=== PATIENT | female | born 1960 | race Caucasian/White ===

== ENCOUNTER 2016-11-11 07:37 | Emergency (ER) | payer BC ==
[2016-11-11] MEDS ORDERED: Sodium Chloride 0.9% 10 ML Syringe FLUSH PRN (07:43)
[2016-11-11] MEDS ORDERED: Sodium Chloride 0.9% 1,000 ML IV SCH (07:45)
--- NOTE | 2016-11-11 08:39 | EDM.PDOC ---
ED HPI GENERAL MEDICAL PROBLEM - General Chief Complaint: Cardiovascular Problem Stated Complaint: AMBER CLEMONS FROM RAD Time Seen by Provider: 11/11/16 07:43 Source of Information: Reports: Patient, Provider, RN Notes Reviewed - History of Present Illness INITIAL COMMENTS - FREE TEXT/NARRATIVE: 56-year-old female was over at the nuclear medicine department getting lexiscan portion of her cardiac stress test when she suffered a brief episode of syncope. director hair showed some major pauses over a period of about 30 seconds. AMBER CLEMONS was called. Upon my arrival heart patient was awake, had a good radial pulse and not in acute distress. She was sent over to the ED for further evaluation and monitoring. On arrival to ED she continues to have no chest discomfort. She remembers being told that she would probably feel lightheaded and dizzy and then remembers waking up with a lot of people in the room. At this time she continues to not have chest discomfort or shortness of breath. The dizziness has fairly well resolved. She states she does have history of abnormal EKG, a valve problem and enlargement of her heart and is currently under the care of a Software Development Analyst in [place]. She does have long- standing history of hypertension. She states she has been feeling fine recently although her chest will get "tight" with exertion such as mowing the lawn. She did take her normal meds this morning except she did not take her Coreg. Headache Pain Score (Numeric/FACES): 8 - Related Data Allergies Allergy/AdvReac Type Severity Reaction Status Date / Time prednisone Allergy Anaphylactic Verified 11/11/16 07:55 Shock Home Meds: Home Meds Carvedilol 12.5 mg PO BID 11/11/16 [History] Chlorthalidone 25 mg PO DAILY 11/11/16 [History] Ibuprofen [Advil Migraine] 200 mg PO Q4H PRN 11/11/16 [History] Lisinopril 20 mg PO DAILY 11/11/16 [History] Pravastatin [Pravachol] 20 mg PO BEDTIME 11/11/16 [History] Past Medical History Cardiovascular History: Reports: High Cholesterol, Hypertension - Past Surgical History Cardiovascular Surgical History: Reports: None Female Surgical History: Reports: Section Musculoskeletal Surgical History: Reports: Other (See Below) Other Musculoskeletal Surgeries/Procedures:: ACL repair to left knee Social & Family History - Tobacco Use Smoking Status *Q: Current Every Day Smoker Years of Tobacco use: 45 Packs/Tins Daily: 0.5 - Caffeine Use Caffeine Use: Reports: Coffee - Recreational Drug Use Recreational Drug Use: No ED ROS GENERAL - Review of Systems Review Of Systems: See Below Constitutional: Denies: Fever, Chills HEENT: Denies: Throat Pain, Throat Swelling Respiratory: Reports: Shortness of Breath (Exertional), Cough (Occasional) Cardiovascular: Reports: Dyspnea on Exertion, Lightheadedness (Patient did feel lightheaded before passing out and upon awakening, that has now resolved). Denies: Chest Pain (Patient has no chest discomfort at this time), Edema GI/Abdominal: Denies: Abdominal Pain, Nausea, Vomiting Musculoskeletal: Denies: Leg Pain Skin: Reports: No Symptoms Neurological: Reports: Dizziness (Resolving). Denies: Numbness, Tingling, Trouble Speaking ED EXAM, GENERAL - Physical Exam Exam: See Below General Appearance: Alert, No Apparent Distress Eye Exam: Bilateral Eye: PERRL Throat/Mouth: Normal Inspection, Normal Oropharynx Head: Atraumatic. No: Facial Swelling Neck: Supple, Full Range of Motion, Other (No JVD) Respiratory/Chest: No Respiratory Distress, Lungs Clear, Normal Breath Sounds Cardiovascular: Regular Rate, Rhythm GI/Abdominal: Soft, Non-Tender. No: Guarding Extremities: No: Pedal Edema, Leg Pain, Increased Warmth, Redness Neurological: Alert, Oriented, No Motor/Sensory Deficits Skin Exam: Warm, Dry, Normal Color EKG INTERPRETATION EKG Date: 11/11/16 Rhythm: NSR [place]: normal P-wave: present QRS: other (Q waves inferior anterior leads) ST-T: depressed (there is T-wave inversion aVL and V6) Course - Vital Signs Last Recorded V/S: Last Vital Signs Temp 97.9 F 11/11/16 07:41 Pulse 61 11/11/16 09:10 Resp 16 11/11/16 09:10 BP 164/92 H 11/11/16 07:41 Pulse Ox 95 11/11/16 09:10 - Orders/Labs/Meds Orders: Active Orders 24 hr Category Date Time Status EKG 12 Lead [EKG Documentation Completion] [RC] STAT Care 11/11/16 07:43 Active Peripheral IV Care [RC] . DIRECTED Care 11/11/16 07:43 Active Sodium Chloride 0.9% [Normal Saline] 1,000 ml Med 11/11/16 07:45 Active IV ASDIRECTED Sodium Chloride 0.9% [Saline Flush] Med 11/11/16 07:43 Active 10 ml FLUSH ASDIRECTED PRN Peripheral IV Insertion Adult [OM.PC] Stat Oth 11/11/16 07:43 Ordered Medication Orders Sodium Chloride (Normal Saline) 1,000 mls @ 75 mls/hr IV ASDIRECTED GAB Last Admin: 11/11/16 08:00 Dose: 75 mls/hr Sodium Chloride (Saline Flush) 10 ml FLUSH ASDIRECTED PRN PRN Reason: Keep Vein Open Last Admin: 11/11/16 08:00 Dose: 10 ml Labs: Laboratory Tests 11/11/16 11/11/16 11/11/16 Range/Units 07:48 07:48 10:43 WBC 10.08 H (3.98-10.04) K/mm3 RBC 5.66 H (3.98-5.22) M/mm3 Hgb 16.3 H (11.2-15.7) gm/L Hct 49.2 H (34.1-44.9) % MCV 86.9 (79.4-94.8) fl MCH 28.8 (25.6-32.2) pg MCHC 33.1 (32.2-35.5) g/dl RDW Std Deviation 44.0 (36.4-46.3) fL Plt Count 347 (182-369) K/mm3 MPV 10.7 (9.4-12.3) fl Neut % (Auto) 60.7 (34.0-71.1) % Lymph % (Auto) 26.0 (19.3-51.7) % [place] % (Auto) 11.1 (4.7-12.5) % Eos % (Auto) 1.5 (0.7-5.8) Baso % (Auto) 0.6 (0.1-1.2) % Neut # (Auto) 6.12 (1.56-6.13) K/mm3 Lymph # (Auto) 2.62 (1.18-3.74) K/mm3 [place] # (Auto) 1.12 H (0.24-0.36) K/mm3 Eos # (Auto) 0.15 (0.04-0.36) K/mm3 Baso # (Auto) 0.06 (0.01-0.08) K/mm3 Sodium 141 (136-145) mEq/L Potassium 3.7 (3.5-5.1) mEq/L Chloride 105 (98-107) mEq/L Carbon Dioxide 26 (21-32) mEq/L Anion Gap 13.7 (5-15) BUN 13 (7-18) mg/dL Creatinine 0.9 (0.55-1.02) mg/dL Est Cr Clr Drug Dosing TNP Estimated GFR (MDRD) > 60 (>60) mL/min BUN/Creatinine Ratio 14.4 (14-18) Glucose 116 H (74-106) mg/dL Calcium 9.3 (8.5-10.1) mg/dL Total Bilirubin 1.0 (0.2-1.0) mg/dL AST 12 L (15-37) U/L ALT 18 (14-59) U/L Alkaline Phosphatase 123 H (46-116) U/L Troponin I < 0.017 < 0.017 (0.00-0.056) ng/mL Total Protein 7.1 (6.4-8.2) g/dl Albumin 3.6 (3.4-5.0) g/dl Globulin 3.5 gm/dL Albumin/Globulin Ratio 1.0 (1-2) Meds: Medications Generic Name Dose Route Start Last Admin Trade Name Freq PRN Reason Stop Dose Admin Sodium Chloride 1,000 mls @ 75 mls/hr 11/11/16 07:45 11/11/16 08:00 Normal Saline IV 75 mls/hr ASDIRECTED GAB Administration Sodium Chloride 10 ml 11/11/16 07:43 11/11/16 08:00 Saline Flush FLUSH 10 ml ASDIRECTED PRN Administration Keep Vein Open - Re-Assessments/Exams Free Text/Narrative Re-Assessment/Exam: 11/11/16 08:25. Patient continues to rest comfortably here in the ED. Sinus rhythm with no ectopy. She does have abnormal EKG with history of that. Labs pending. With her rhythm is stable and no current symptomatology I will let her continue through the process of further imaging to complete her cardiac stress test this morning. 11/11/16 10:57 Dr Mueller called a few minutes ago, connected me with her Software Development Analyst from [place]. I informed him of her current condition, labs, normal trop. He agrees with doing a repeat 2 to 3 hr trop. He states he will be contacting her to set her up for angiogram in the near future. 11/11/16 11:45. Repeat troponin is normal. Her vitals remained stable. Her cardiac stress test is complete. She's had no chest pain or unusual dizziness since her arrival to our ED several hours ago. Discharge instructions as documented Departure - Departure Time of Disposition: 11:46 Disposition: Home, Self-Care 01 Condition: fair Clinical Impression: Bradycardia Syncope Qualifiers: Syncope type: unspecified Qualified Code(s): R55 - Syncope and collapse Instructions: Bradycardia, Syncope, [id number] Referrals: Viki Hampton, [facility]ER [Primary Care Provider] - Forms: ED Department Discharge Additional Instructions: Continue current medications as previously prescribed, her mangle catcher will be contacting you regarding further diagnostics as well as results of your cardiac stress study today, return to ED for chest pain, unusual dizziness or symptoms otherwise worsening in any way, followup clinic as needed. - My Orders Last 24 Hours: My Active Orders 11/11/16 07:43 EKG 12 Lead [EKG Documentation Completion] [RC] STAT Peripheral IV Care [RC] . DIRECTED Sodium Chloride 0.9% [Saline Flush] 10 ml FLUSH ASDIRECTED PRN Peripheral IV Insertion Adult [OM.PC] Stat 11/11/16 07:45 Sodium Chloride 0.9% [Normal Saline] 1,000 ml IV ASDIRECTED - Assessment/Plan Last 24 Hours: My Active Orders 11/11/16 07:43 EKG 12 Lead [EKG Documentation Completion] [RC] STAT Peripheral IV Care [RC] . DIRECTED Sodium Chloride 0.9% [Saline Flush] 10 ml FLUSH ASDIRECTED PRN Peripheral IV Insertion Adult [OM.PC] Stat 11/11/16 07:45 Sodium Chloride 0.9% [Normal Saline] 1,000 ml IV ASDIRECTED
[2016-11-11 11:57] VITALS: BP 160/83
== END 2016-11-11 11:55 | disposition home or self-care (01) ==
LOC: JD.ED 07:37
DX: R55 Syncope and collapse (principal); R00.1 Bradycardia, unspecified; I10 Essential (primary) hypertension; E78.00 Pure hypercholesterolemia, unspecified; Z98.890 Other specified postprocedural states; Z79.899 Other long term (current) drug therapy; F17.210 Nicotine dependence, cigarettes, uncomplicated; Z88.8 Allergy status to other drugs, medicaments and biological substances
CPT/HCPCS: 36415; 80053; 84484; 85025; 93005; 96360; 99285; J7040; J7050; 99284

== ENCOUNTER 2018-07-26 10:15 | Emergency (ER) | payer BC ==
--- NOTE | 2018-07-26 11:57 | CR ---
Chest: Two views of the chest were obtained. Comparison: Prior chest x-ray of 07/04/14. Heart size is normal. Tortuous thoracic aorta is seen. Lung markings are mildly increased which are believed to be chronic. No acute parenchymal change is seen. Bony structures appear within normal limits for the patient's age. Impression: 1. Nothing acute is seen on two-view chest x-ray. Diagnostic code #2
--- NOTE | 2018-07-26 12:10 | EDM.PDOC ---
ED HPI GENERAL MEDICAL PROBLEM - General Chief Complaint: Cardiovascular Problem Stated Complaint: CHEST PAIN Time Seen by Provider: 07/26/18 10:39 Source of Information: Reports: Patient, RN Notes Reviewed History Limitations: Reports: No Limitations - History of Present Illness INITIAL COMMENTS - FREE TEXT/NARRATIVE: The patient states that she saw her Engineer Second Assistant, Dr. Currie, today, for a routine visit, but that he then sent her here because the patient reported that she had had chest pain this morning, and her blood pressure was noted to be significantly elevated in his office. The patient describes that she developed left anterior chest pain around 05:30. She states that she was already up. She describes the pain as being a squeezing sensation. It was a pain, not a discomfort. It did not radiate. It came on rapidly. It lasted for only about 15 minutes, then resolved, and has not returned. The patient is not sure if she had associated dyspnea. She had no associated nausea, diaphoresis, or sense of impending doom. The patient states that after the pain resolved, she experienced some heartburn symptoms. The patient has a history of a hiatal hernia with acid reflux The patient states that she has had similar episodes of left-sided chest pain, several times over the past year. Of note, the patient states that she underwent a coronary angiogram in both 2017 and 2018, and that both were "clean ". The patient was given an extra dose of hydralazine in Dr. Currie's office before being sent to the ED. Here in the ED, the patient's initial BP was initially 214/85, but came down to 187/78, without additional treatment. An ECG, obtained 02/16/2018, was faxed to us from Dr. Currie's office. It demonstrates a normal sinus rhythm at 62 bpm. There is no AV block. There is likely LAE. There are no ischemic changes, although Q waves are noted in the inferior and lateral leads. There is no LAD. There is likely LVH. No intraventricular conduction delays. The QTc is within normal limits. The patient's PCP is Adrianne Natarajan. Treatments FLIGHT SECURITY SPECIALIST: Reports: Other (see below) Other Treatments FLIGHT SECURITY SPECIALIST: hydralazine headache Pain Score (Numeric/FACES): 4 - Related Data Allergies Allergy/AdvReac Type Severity Reaction Status Date / Time carvedilol [From Coreg] Allergy Other Verified 07/26/18 10:28 prednisone Allergy Anaphylactic Verified 07/26/18 10:27 Shock regadenoson [From Lexiscan] Allergy Cardiac Verified 07/26/18 10:27 Arrest capsicum/lopes pepper Allergy Bronchospas Uncoded 07/26/18 10:28 ms Home Meds: Home Meds Ibuprofen [Advil Migraine] 200 mg PO Q4H PRN 11/11/16 [History] Lisinopril 20 mg PO DAILY 11/11/16 [History] Pravastatin [Pravachol] 40 mg PO BEDTIME 11/11/16 [History] Aspirin 325 mg PO DAILY 07/26/18 [History] Montelukast [Singulair] 10 mg PO DAILY 07/26/18 [History] Nitroglycerin [Nitrostat] 0.4 mg SL ASDIRECTED PRN 07/26/18 [History] Omeprazole 20 mg PO BID 07/26/18 [History] Spironolactone [Aldactone] 25 mg PO BID 07/26/18 [History] amLODIPine Besylate [Amlodipine Besylate] 5 mg PO BID 07/26/18 [History] cloNIDine [Catapres] 0.1 mg PO BID 07/26/18 [History] hydrALAZINE [Apresoline] 50 mg PO Q3H PRN 07/26/18 [History] Past Medical History HEENT History: Reports: Hard of Hearing Cardiovascular History: Reports: High Cholesterol, Hypertension Gastrointestinal History: Reports: GERD, Hiatal Hernia Genitourinary History: Reports: Urinary Incontinence (stress incontinence) - Past Surgical History HEENT Surgical History: Reports: Oral Surgery (wisdom teeth extraction) Cardiovascular Surgical History: Reports: Other (See Below) (Coronary angiogram 2017, 2018, both "clean") GI Surgical History: Reports: Colonoscopy, EGD Female Surgical History: Reports: Section (x 1) Musculoskeletal Surgical History: Reports: Other (See Below) (Left knee open ACL repair) Social & Family History - Tobacco Use Smoking Status *Q: Current Every Day Smoker Years of Tobacco use: 44 Packs/Tins Daily: 0.5 Packs/Tins Daily Comment: Down from 1 ppd - Caffeine Use Caffeine Use: Reports: Coffee - Alcohol Use Alcohol Use History: No - Recreational Drug Use Recreational Drug Use: No - Living Situation & Occupation Living situation: Reports: , with Spouse, with Family (3 sons) Occupation: Employed (health care administrator) ED ROS GENERAL - Review of Systems Review Of Systems: ROS reveals no pertinent complaints other than HPI. ED EXAM, GENERAL - Physical Exam Exam: See Below Exam Limited By: No Limitations General Appearance: Alert, WD/WN, No Apparent Distress Eye Exam: Bilateral Eye: EOMI, Normal Inspection Ears: Normal External Exam, Hearing Loss Nose: Normal Inspection Throat/Mouth: Normal Inspection, Normal Lips, Normal Voice, No Airway Compromise Head: Atraumatic, Normocephalic Neck: Normal Inspection, Full Range of Motion Respiratory/Chest: No Respiratory Distress, Lungs Clear, Normal Breath Sounds, No Accessory Muscle Use Cardiovascular: Normal Peripheral Pulses, Regular Rate, Rhythm, No Gallop, No JVD, No Murmur, No Rub Peripheral Pulses: 4+: Radial (L), Radial (R) GI/Abdominal: Normal Bowel Sounds, Soft, Non-Tender, No Organomegaly, No Distention, No Abnormal Bruit, No Mass (Female) Exam: Deferred Rectal (Female) Exam: Deferred Extremities: Normal Inspection, Normal Range of Motion, No Pedal Edema, Normal Capillary Refill Neurological: Alert, Oriented, CN II-XII Intact, Normal Cognition, No Motor/ Sensory Deficits Psychiatric: Normal Affect Skin Exam: Warm, Dry, Intact, Normal Color, No Rash EKG INTERPRETATION EKG Date: 07/26/18 Time: 10:22 Rhythm: NSR Rate (Beats/Min): 93 [place]: Normal P-Wave: Enlarged (Bi-atrial enlargement) QRS: Other (LVH with repolarization changes) ST-T: Normal QT: Normal Comparison: No Change (11/11/2016) Course - Vital Signs Last Recorded V/S: Last Vital Signs Temp 36.7 C 07/26/18 10:18 Pulse 70 07/26/18 12:40 Resp 16 07/26/18 12:40 BP 147/74 H 07/26/18 12:40 Pulse Ox 95 07/26/18 12:40 - Orders/Labs/Meds Labs: Laboratory Tests 07/26/18 07/26/18 07/26/18 Range/Units 11:38 11:38 11:38 WBC 8.25 (3.98-10.04) K/mm3 RBC 5.70 H (3.98-5.22) M/mm3 Hgb 16.6 H (11.2-15.7) gm/L Hct 50.3 H (34.1-44.9) % MCV 88.2 (79.4-94.8) fl MCH 29.1 (25.6-32.2) pg MCHC 33.0 (32.2-35.5) g/dl RDW Std Deviation 45.3 (36.4-46.3) fL Plt Count 333 (182-369) K/mm3 MPV 10.4 (9.4-12.3) fl Neutrophils % (Manual) 68 H (40-60) % Band Neutrophils % 0 (0-10) % Lymphocytes % (Manual) 23 (20-40) % Atypical Lymphs % 0 % Monocytes % (Manual) 9 (2-10) % Eosinophils % (Manual) 0 L (0.7-5.8) % Basophils % (Manual) 0 L (0.1-1.2) Platelet Estimate Adequate RBC Morph Comment Normal D-Dimer, Quantitative 0.19 (0.19-0.50) mg/L Sodium 141 (136-145) mEq/L Potassium 4.7 (3.5-5.1) mEq/L Chloride 104 (98-107) mEq/L Carbon Dioxide 27 (21-32) mEq/L Anion Gap 14.7 (5-15) BUN 16 (7-18) mg/dL Creatinine 1.4 H (0.55-1.02) mg/dL Est Cr Clr Drug Dosing 36.90 mL/min Estimated GFR (MDRD) 38 (>60) mL/min BUN/Creatinine Ratio 11.4 L (14-18) Glucose 99 (74-106) mg/dL Calcium 10.2 H (8.5-10.1) mg/dL Total Bilirubin 0.6 (0.2-1.0) mg/dL AST 17 (15-37) U/L ALT 28 (14-59) U/L Alkaline Phosphatase 132 H (46-116) U/L Troponin I < 0.017 (0.00-0.056) ng/mL NT-Pro-B Natriuret Pep (0-125) pg/mL Total Protein 8.0 (6.4-8.2) g/dl Albumin 4.2 (3.4-5.0) g/dl Globulin 3.8 gm/dL Albumin/Globulin Ratio 1.1 (1-2) 07/26/18 Range/Units 11:38 WBC (3.98-10.04) K/mm3 RBC (3.98-5.22) M/mm3 Hgb (11.2-15.7) gm/L Hct (34.1-44.9) % MCV (79.4-94.8) fl MCH (25.6-32.2) pg MCHC (32.2-35.5) g/dl RDW Std Deviation (36.4-46.3) fL Plt Count (182-369) K/mm3 MPV (9.4-12.3) fl Neutrophils % (Manual) (40-60) % Band Neutrophils % (0-10) % Lymphocytes % (Manual) (20-40) % Atypical Lymphs % % Monocytes % (Manual) (2-10) % Eosinophils % (Manual) (0.7-5.8) % Basophils % (Manual) (0.1-1.2) Platelet Estimate RBC Morph Comment D-Dimer, Quantitative (0.19-0.50) mg/L Sodium (136-145) mEq/L Potassium (3.5-5.1) mEq/L Chloride (98-107) mEq/L Carbon Dioxide (21-32) mEq/L Anion Gap (5-15) BUN (7-18) mg/dL Creatinine (0.55-1.02) mg/dL Est Cr Clr Drug Dosing mL/min Estimated GFR (MDRD) (>60) mL/min BUN/Creatinine Ratio (14-18) Glucose (74-106) mg/dL Calcium (8.5-10.1) mg/dL Total Bilirubin (0.2-1.0) mg/dL AST (15-37) U/L ALT (14-59) U/L Alkaline Phosphatase (46-116) U/L Troponin I (0.00-0.056) ng/mL NT-Pro-B Natriuret Pep 176 H (0-125) pg/mL Total Protein (6.4-8.2) g/dl Albumin (3.4-5.0) g/dl Globulin gm/dL Albumin/Globulin Ratio (1-2) - Re-Assessments/Exams Free Text/Narrative Re-Assessment/Exam: 07/26/18 12:09 2-view chest radiograph is read by Dr. Alegria as: 1. Nothing acute is seen on 2-view chest x-ray. 07/26/18 13:17 Test results discussed with the patient and her daughter. The patient's daughter was not present when I initially evaluated the patient. Today's workup is entirely unremarkable. There is no evidence that the patient's earlier chest pain was due to cardiac ischemia, which is consistent with the patient having "clean" coronary angiograms in 2017 and 2017. The patient's daughter asked me a couple of times that if not due to her heart, what was the cause of the patient' s chest pain, to which I explained that I cannot say what the actual cause of her symptoms were, only what her symptoms are not due to. I can say with confidence that the patient has not suffered a heart attack, that she does not have a blood clot in her lungs, nor pneumonia, nor a collapsed lung, but as for the exact etiology of her left-sided chest pain, I can only speculate. It could be musculoskeletal, gastrointestinal, or some other cause. The patient and her daughter seem unhappy with this explanation. I suggested that she follow-up with Dr. Currie. Departure - Departure Time of Disposition: 13:21 Disposition: Home, Self-Care 01 Condition: Good Clinical Impression: Non-cardiac chest pain, Elevated blood pressure reading Instructions: Nonspecific Chest Pain, [id number], Hypertension Referrals: Eitan Currei DO [Primary Care Provider] - Adrianne Natarajan NP [Ordering Only Provider] - Forms: ED Department Discharge Additional Instructions: You were sent to the emergency room by her rat breeder after experiencing left- sided chest pain and elevated blood pressure. Workup in the ER included blood work, a chest x-ray, and an ECG. With the exception of mild renal insufficiency, new since 11/11/2016, your entire workup was unremarkable. You have not suffered a heart attack. You do not have a blood clot in your lungs. You do not have pneumonia. You do not have a collapsed lung. The cause of your left-sided chest pain is unclear, but does not appear to be due to anything serious. Your blood pressure was initially elevated, but significantly improved without additional treatment in the ER. We recommend that you follow-up with your Engineer Second Assistant, Dr. Currie. If any other problems, please do not hesitate to return to the ER.
== END 2018-07-26 13:43 | disposition home or self-care (01) ==
LOC: JD.ED 10:15
DX: R07.89 Other chest pain (principal); I10 Essential (primary) hypertension; F17.210 Nicotine dependence, cigarettes, uncomplicated; Z88.8 Allergy status to other drugs, medicaments and biological substances; Z79.899 Other long term (current) drug therapy
CPT/HCPCS: 36415; 71046; 71046-26; 80053; 83880; 84484; 85007; 85027; 85379; 93005; 93010; 99284; 99284-25

== ENCOUNTER 2024-09-21 16:25 | Emergency (ER) | payer BC ==
[2024-09-21] MEDS ORDERED: Sodium Chloride 0.9% 10 ML Syringe FLUSH PRN (17:08)
[2024-09-21 18:19] LABS: ALBUMIN 3.4 g/dl (3.4-5.0); ANION GAP 11.2 (5-15); BILIRUBIN TOTAL 1.8 mg/dL (0.2-1.0); BUN/CREATININE RATIO 11.3 (14-18); CALCIUM 9.2 mg/dL (8.5-10.1); CREATININE 1.6 mg/dL (0.55-1.02); EST CRCL DRUG DOSING (CG) 29.87 mL/min; POTASSIUM,K 4.2 mEq/L (3.5-5.1); PROTEIN TOTAL,TP 6.8 g/dl (6.4-8.2)
== END 2024-09-21 19:38 | disposition home or self-care (01) ==
LOC: JD.ED 16:25
DX: J90 Pleural effusion, not elsewhere classified (principal); D72.829 Elevated white blood cell count, unspecified; R91.1 Solitary pulmonary nodule; I10 Essential (primary) hypertension; K21.9 Gastro-esophageal reflux disease without esophagitis; E78.00 Pure hypercholesterolemia, unspecified; Z91.018 Allergy to other foods; Z88.8 Allergy status to other drugs, medicaments and biological substances; Z79.899 Other long term (current) drug therapy; Z95.0 Presence of cardiac pacemaker
CPT/HCPCS: 36415; 71250; 71250-26; 80053; 84484; 99284; 99285

== ENCOUNTER 2024-10-27 07:13 | Emergency (ER) | payer BC, OTHER ==
[2024-10-27] MEDS: Diphtheria,Pertussis(Acell),Tetanus Vaccine 0.5 ML Syringe IM ONE (08:31)
[2024-10-27] MEDS ORDERED: Lidocaine 1% 20 ML MDV INJECT ONE (08:58)
== END 2024-10-27 09:38 | disposition home or self-care (01) ==
LOC: JD.ED 07:13
DX: S62.632A Displaced fracture of distal phalanx of right middle finger, initial encounter for closed fracture (principal); S67.10XA Crushing injury of unspecified finger(s), initial encounter; Z79.899 Other long term (current) drug therapy; Z88.8 Allergy status to other drugs, medicaments and biological substances; Z79.82 Long term (current) use of aspirin; E78.00 Pure hypercholesterolemia, unspecified; K21.9 Gastro-esophageal reflux disease without esophagitis; I10 Essential (primary) hypertension; X58.XXXA Exposure to other specified factors, initial encounter
CPT/HCPCS: 12001; 73140-26-RT; 73140-RT; 90471; 90715; 99283; 99283-25